=== PATIENT | female | born 1980 | race African-American/Black ===

== ENCOUNTER 2017-01-13 22:04 | Emergency (ER) | payer SELFPAY ==
[~2017-01-13] VITALS: Ht 182.9 cm; Wt 108.9 kg
[2017-01-13 22:22] VITALS: BP 144/88
[2017-01-13 22:27] LABS: BILIRUBIN,URINE NEGATIVE (NEG); GLUCOSE,URINE NEGATIVE (NEG); NITRITE,URINE NEGATIVE (NEG); PROTEIN,URINE NEGATIVE (NEG-TRACE)
--- NOTE | 2017-01-13 22:27 | PHYS DOC ---
Adult General Chief Complaint Chief Complaint: VAGINAL PROBLEM HPI HPI Patient is a 36 year old female presents to the emergency department with complaints of lower abdominal pain. She states she's had burning with urination for 3 days. She states that 3 days prior to the onset of her burning with urination she had sexual intercourse and she is concerned she may have an STD. She denies vaginal discharge. She states she does have a "not normal odor". Review of Systems Review of Systems Constitutional: Denies fever or chills [] Eyes: Denies change in visual acuity, redness, or eye pain [] HENT: Denies nasal congestion or sore throat [] Respiratory: Denies cough or shortness of breath [] Cardiovascular: No additional information not addressed in HPI [] GI: Denies nausea, vomiting, bloody stools or diarrhea; complaining of low abdominal pain : Dysuria and malodorous vagina Musculoskeletal: Denies back pain or joint pain [] Integument: Denies rash or skin lesions [] Neurologic: Denies headache, focal weakness or sensory changes [] Endocrine: Denies polyuria or polydipsia [] Allergies Allergies Allergies Coded Allergies Type Severity Reaction Last Updated Verified No Known Drug Allergies 01/13/17 No Physical Exam Physical Exam Constitutional: Well developed, well nourished, no acute distress, non-toxic appearance. [] Neck: Normal range of motion, no tenderness, supple, no stridor. [] Cardiovascular:Heart rate regular rhythm, no murmur [] Lungs & Thorax: Bilateral breath sounds clear to auscultation [] Abdomen: Bowel sounds normal, soft, no tenderness, no masses, no pulsatile masses. : External genitalia normal, vaginal vault clear without discharge. Patient has had a previous hysterectomy no cervix visualized, the cuff is intact. Bimanual exam unremarkable. [] Skin: Warm, dry, no erythema, no rash. [] Back: No tenderness, no CVA tenderness. [] Current Patient Data Vital Signs Vital Signs Date Time Temp Pulse Resp B/P (MAP) Pulse Ox O2 Delivery O2 Flow Rate FiO2 01/13/17 22:22 99.1 65 18 98 Room Air 99.1 Lab Values Laboratory Tests Test 01/13/17 22:10 Urine Collection Type Void Urine Color Yellow Urine Clarity Clear Urine pH 7.0 Urine Specific [place] 1.025 Urine Protein Negative mg/dL (NEG-TRACE) Urine Glucose (UA) Negative mg/dL (NEG) Urine Ketones (Stick) Negative mg/dL (NEG) Urine Blood Moderate (NEG) Urine Nitrite Negative (NEG) Urine Bilirubin Negative (NEG) Urine Urobilinogen Dipstick 2.0 mg/dL (0.2 mg/dL) Urine Leukocyte Esterase Moderate (NEG) Urine RBC 11-20 /HPF (0-2) Urine WBC 11-20 /HPF (0-4) Urine Squamous Epithelial Cells Few /LPF Urine Bacteria Few /HPF (0-FEW) Urine Mucus Mod /LPF EKG EKG [] Radiology/Procedures Radiology/Procedures [] Course & Med Decision Making Course & Med Decision Making Pertinent Labs and Imaging studies reviewed. (See chart for details) [] Urine positive for leukocytes, microscopic WBCs 11-20 Dragon Disclaimer Dragon Disclaimer This electronic medical record was generated, in whole or in part, using a voice recognition dictation system. Departure Departure Impression: Primary Impression: Urinary tract infection Disposition: HOME, SELF-CARE Condition: STABLE Referrals: NON,STAFF (PCP) Patient Instructions: Urinary Tract Infection Scripts Phenazopyridine Hcl (PYRIDIUM) 200 Mg Tablet 200 MG PO TID, #6 TAB Prov: DANA SIERRA APRN 01/13/17 Sulfamethoxazole/Trimethoprim (BACTRIM DS TABLET) 1 Each Tablet 1 TAB PO BID, #20 TAB Prov: DANA SIERRA APRN 01/13/17 Problem Qualifiers Primary Impression: Urinary tract infection Urinary tract infection type: acute cystitis Hematuria presence: with hematuria Qualified Codes: N30.01 - Acute cystitis with hematuria DANA SIERRA APRN Jan 13, 2017 22:27
[2017-01-13 22:34] LABS: BACTERIA,URINE FEW /HPF (0-FEW); SQUAMOUS EPITHELIAL CELL,UR FEW /LPF
[2017-01-13] MEDS ORDERED: PHEN-318 PO (22:42)
[2017-01-13] MEDS ORDERED: SULF1TAB24 PO (22:42)
== END 2017-01-13 22:45 | disposition home or self-care (01) ==
LOC: ER 22:04
DX: N30.01 Acute cystitis with hematuria (principal)
CPT/HCPCS: 81001; 87491; 87591; 99284

== ENCOUNTER 2017-03-21 23:36 | Emergency (ER) | payer SELFPAY ==
[~2017-03-21] VITALS: Ht 185.4 cm; Wt 104.3 kg
[~2017-03-21 23:36] MED LIST: PHEN-318 PO; SULF1TAB24 PO
[2017-03-22] MEDS ORDERED: ONDANSETRON PF 4 MG/2 ML VIAL. ONE (00:04)
[2017-03-22 00:24] LABS: BASO # 0.1 x10^3/uL (0.0-0.2); BASO % 1 % (0-3); EOS % 1 % (0-3); HEMATOCRIT 36.4 % (36.0-47.0); HEMOGLOBIN 11.9 g/dL (12.0-15.5); LYMPH # 3.9 x10^3/uL (1.0-4.8); LYMPH % 37 % (24-48); MEAN CORPUSCULAR HEMOGLOBIN 27 pg (25-35); MEAN CORPUSCULAR HGB CONC 33 g/dL (31-37); MEAN CORPUSCULAR VOLUME 83 fL (79-100); MONO % 12 % (0-9); NEUT % 50 % (31-73); PLATELET COUNT 232 x10^3/uL (140-400); RED BLOOD COUNT 4.38 x10^6/uL (3.50-5.40); RED CELL DISTRIBUTION WIDTH 14.3 % (11.5-14.5); WHITE BLOOD COUNT 10.7 x10^3/uL (4.0-11.0)
[2017-03-22 00:27] LABS: BILIRUBIN,URINE NEGATIVE (NEG); GLUCOSE,URINE NEGATIVE (NEG); NITRITE,URINE NEGATIVE (NEG); PH,URINE 6.5; PROTEIN,URINE NEGATIVE (NEG-TRACE)
[2017-03-22 00:36] LABS: CALCIUM 9.3 mg/dL (8.5-10.1); CREATININE 0.8 mg/dL (0.6-1.0); GFR 97.7; POTASSIUM 3.8 mmol/L (3.5-5.1)
[2017-03-22 00:38] LABS: BACTERIA,URINE MANY /HPF (0-FEW); RBC,URINE OCC /HPF (0-2); SQUAMOUS EPITHELIAL CELL,UR MANY /LPF; TRICHOMONAS,URINE PRESENT
[2017-03-22 00:42] LABS: ALBUMIN 3.4 g/dL (3.4-5.0); ALBUMIN/GLOBULIN RATIO 0.9 (1.0-1.7); TOTAL BILIRUBIN 0.1 mg/dL (0.2-1.0); TOTAL PROTEIN 7.4 g/dL (6.4-8.2)
[2017-03-22] MEDS ORDERED: KETOROLAC 15 MG/ML VIAL. IV ONE (01:00)
[2017-03-22] MEDS ORDERED: IV NORMAL SALINE 1000ML BAG 1,000 ML IV ONE (01:00)
[2017-03-22] MEDS ORDERED: ONDANSETRON PF 4 MG/2 ML VIAL. IV ONE (01:00)
[2017-03-22 01:50] VITALS: BP 106/59
[2017-03-22] MEDS ORDERED: HYOS0.1265 SL (02:13)
[2017-03-22] MEDS ORDERED: ONDA4TAB10 SL (02:13)
--- NOTE | 2017-03-22 02:13 | PHYS DOC ---
Past Medical History Past Medical History: Cancer Additional Past Medical Histor: UTERINE CANCER Past Surgical History: Hysterectomy Alcohol Use: None Drug Use: None Adult General Chief Complaint Chief Complaint: MULTIPLE COMPLAINTS HPI HPI Patient is a 36 year old [f__sex] who presents with [] Review of Systems Review of Systems Constitutional: Denies fever or chills [] Eyes: Denies change in visual acuity, redness, or eye pain [] HENT: Denies nasal congestion or sore throat [] Respiratory: Denies cough or shortness of breath [] Cardiovascular: No additional information not addressed in HPI [] GI: Denies abdominal pain, nausea, vomiting, bloody stools or diarrhea [] : Denies dysuria or hematuria [] Musculoskeletal: Denies back pain or joint pain [] Integument: Denies rash or skin lesions [] Neurologic: Denies headache, focal weakness or sensory changes [] Endocrine: Denies polyuria or polydipsia [] Current Medications Current Medications Current Medications Medications (Trade) Dose Ordered Sig/Perico Start Time Stop Time Status Last Admin Dose Admin Ketorolac Tromethamine (Toradol) 15 mg 1X ONCE 03/22/17 01:00 03/22/17 01:01 DC 03/22/17 00:55 15 MG Ondansetron HCl (Zofran) 4 mg 1X ONCE 03/22/17 01:00 03/22/17 01:01 DC 03/22/17 00:30 4 MG Sodium Chloride 1,000 ml @ 1,000 mls/hr 1X ONCE 03/22/17 01:00 03/22/17 01:59 DC 03/22/17 00:55 1,000 MLS/HR Allergies Allergies Allergies Coded Allergies Type Severity Reaction Last Updated Verified No Known Drug Allergies 01/13/17 No Physical Exam Physical Exam Constitutional: Well developed, well nourished, no acute distress, non-toxic appearance. [] HENT: Normocephalic, atraumatic, bilateral external ears normal, oropharynx moist, no oral exudates, nose normal. [] Eyes: PERRLA, EOMI, conjunctiva normal, no discharge. [] Neck: Normal range of motion, no tenderness, supple, no stridor. [] Cardiovascular:Heart rate regular rhythm, no murmur [] Lungs & Thorax: Bilateral breath sounds clear to auscultation [] Abdomen: Bowel sounds normal, soft, no tenderness, no masses, no pulsatile masses. [] Skin: Warm, dry, no erythema, no rash. [] Back: No tenderness, no CVA tenderness. [] Extremities: No tenderness, no cyanosis, no clubbing, ROM intact, no edema. [] Neurologic: Alert and oriented X 3, normal motor function, normal sensory function, no focal deficits noted. [] Psychologic: Affect normal, judgement normal, mood normal. [] Current Patient Data Vital Signs Vital Signs Date Time Temp Pulse Resp B/P (MAP) Pulse Ox O2 Delivery O2 Flow Rate FiO2 03/22/17 00:02 98.3 71 16 116/59 (78) 99 Room Air 98.3 Lab Values Laboratory Tests Test 03/22/17 00:01 White Blood Count 10.7 x10^3/uL (4.0-11.0) Red Blood Count 4.38 x10^6/uL (3.50-5.40) Hemoglobin 11.9 g/dL (12.0-15.5) L Hematocrit 36.4 % (36.0-47.0) Mean Corpuscular Volume 83 fL (79-100) Mean Corpuscular Hemoglobin 27 pg (25-35) Mean Corpuscular Hemoglobin Concent 33 g/dL (31-37) Red Cell Distribution Width 14.3 % (11.5-14.5) Platelet Count 232 x10^3/uL (140-400) Neutrophils (%) (Auto) 50 % (31-73) Lymphocytes (%) (Auto) 37 % (24-48) Monocytes (%) (Auto) 12 % (0-9) H Eosinophils (%) (Auto) 1 % (0-3) Basophils (%) (Auto) 1 % (0-3) Neutrophils # (Auto) 5.3 x10^3uL (1.8-7.7) Lymphocytes # (Auto) 3.9 x10^3/uL (1.0-4.8) Monocytes # (Auto) 1.3 x10^3/uL (0.0-1.1) H Eosinophils # (Auto) 0.1 x10^3/uL (0.0-0.7) Basophils # (Auto) 0.1 x10^3/uL (0.0-0.2) Urine Collection Type Unknown Urine Color Yellow Urine Clarity Cloudy Urine pH 6.5 Urine Specific [place] 1.025 Urine Protein Negative mg/dL (NEG-TRACE) Urine Glucose (UA) Negative mg/dL (NEG) Urine Ketones (Stick) Negative mg/dL (NEG) Urine Blood Large (NEG) Urine Nitrite Negative (NEG) Urine Bilirubin Negative (NEG) Urine Urobilinogen Dipstick 1.0 mg/dL (0.2 mg/dL) Urine Leukocyte Esterase Small (NEG) Urine RBC Occ /HPF (0-2) Urine WBC 11-20 /HPF (0-4) Urine Squamous Epithelial Cells Many /LPF Urine Bacteria Many /HPF (0-FEW) Urine Mucus Mod /LPF Urine Trichomonas Present Sodium Level 143 mmol/L (136-145) Potassium Level 3.8 mmol/L (3.5-5.1) Chloride Level 105 mmol/L (98-107) Carbon Dioxide Level 28 mmol/L (21-32) Anion Gap 10 (6-14) Blood Urea Nitrogen 14 mg/dL (7-20) Creatinine 0.8 mg/dL (0.6-1.0) Estimated GFR (Cockcroft-Gault) 97.7 BUN/Creatinine Ratio 18 (6-20) Glucose Level 101 mg/dL (70-99) H Calcium Level 9.3 mg/dL (8.5-10.1) Total Bilirubin 0.1 mg/dL (0.2-1.0) L Aspartate Amino Transferase (AST) 22 U/L (15-37) Alanine Aminotransferase (ALT) 21 U/L (14-59) Alkaline Phosphatase 50 U/L (46-116) Troponin I Quantitative < 0.017 ng/mL (0.000-0.055) Total Protein 7.4 g/dL (6.4-8.2) Albumin 3.4 g/dL (3.4-5.0) Albumin/Globulin Ratio 0.9 (1.0-1.7) L Lipase 239 U/L (73-393) Laboratory Tests 03/22/17 00:01 Laboratory Tests 03/22/17 00:01 EKG EKG [] Radiology/Procedures Radiology/Procedures [] Course & Med Decision Making Course & Med Decision Making Pertinent Labs and Imaging studies reviewed. (See chart for details) [] Dragon Disclaimer Dragon Disclaimer This electronic medical record was generated, in whole or in part, using a voice recognition dictation system. Departure Departure Impression: Primary Impression: Nausea & vomiting Additional Impression: Abdominal pain Disposition: HOME, SELF-CARE Condition: IMPROVED Referrals: NO PCP (PCP) Patient Instructions: Abdominal Pain (Nonspecific) Scripts Ondansetron (ZOFRAN ODT) 4 Mg Tab.rapdis 1 TAB SL Q6HRS Y for NAUSEA, #12 TAB Prov: FAREED VICENTE MD 03/22/17 Hyoscyamine Sulfate (LEVSIN-SL) 0.125 Mg Tab.subl 0.125 MG SL Q6-8HRS Y for abdominal cramps, #10 Prov: FAREED VICENTE MD 03/22/17 Problem Qualifiers FAREED VICENTE MD Mar 22, 2017 02:13
--- NOTE | 2017-03-22 06:28 | EKG ---
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
== END 2017-03-22 02:23 | disposition home or self-care (01) ==
LOC: ER 23:36
DX: R11.2 Nausea with vomiting, unspecified (principal); R10.9 Unspecified abdominal pain
CPT/HCPCS: 36415; 80053; 81001; 83690; 84484; 85025; 87086; 93005; 96361; 96374; 96375; 99285; J1885; J2405; J7030

== ENCOUNTER → 2017-06-29 | Outpatient (CLI) | payer OTHER ==
[2017-06-29 11:38] LABS: ADD MAN DIFF? NO
[2017-06-29 11:44] LABS: BASO # 0.1 x10^3/uL (0.0-0.2); BASO % 1 % (0-3); EOS # 0.1 x10^3/uL (0.0-0.7); EOS % 2 % (0-3); HEMATOCRIT 39.2 % (36.0-47.0); HEMOGLOBIN 12.5 g/dL (12.0-15.5); LYMPH # 2.3 x10^3/uL (1.0-4.8); LYMPH % 39 % (24-48); MEAN CORPUSCULAR HEMOGLOBIN 27 pg (25-35); MEAN CORPUSCULAR HGB CONC 32 g/dL (31-37); MEAN CORPUSCULAR VOLUME 84 fL (79-100); MONO # 0.7 x10^3/uL (0.0-1.1); MONO % 11 % (0-9); NEUT # 2.7 x10^3uL (1.8-7.7); NEUT % 47 % (31-73); PLATELET COUNT 276 x10^3/uL (140-400); RED BLOOD COUNT 4.66 x10^6/uL (3.50-5.40); RED CELL DISTRIBUTION WIDTH 14.9 % (11.5-14.5); WHITE BLOOD COUNT 5.9 x10^3/uL (4.0-11.0)
[2017-06-29 12:10] LABS: ALBUMIN 3.7 g/dL (3.4-5.0); ALBUMIN/GLOBULIN RATIO 0.8 (1.0-1.7); ALK PHOS 56 U/L (46-116); ALT (SGPT) 23 U/L (14-59); ANION GAP 6 (6-14); AST (SGOT) 22 U/L (15-37); BLOOD UREA NITROGEN 11 mg/dL (7-20); BUN/CREATININE RATIO 12 (6-20); CALCIUM 9.5 mg/dL (8.5-10.1); CARBON DIOXIDE 32 mmol/L (21-32); CHLORIDE 105 mmol/L (98-107); CREATININE 0.9 mg/dL (0.6-1.0); GFR 85.2; GLUCOSE 85 mg/dL (70-99); POTASSIUM 4.1 mmol/L (3.5-5.1); SODIUM 143 mmol/L (136-145); TOTAL BILIRUBIN 0.3 mg/dL (0.2-1.0); TOTAL PROTEIN 8.3 g/dL (6.4-8.2)
[2017-06-29 12:19] LABS: THYROID STIM HORMONE (TSH) 0.856 uIU/mL (0.358-3.74)
== END | disposition home or self-care (01) ==
LOC: LAB 11:26
DX: Z01.419 Encounter for gynecological examination (general) (routine) without abnormal findings (principal); R79.89 Other specified abnormal findings of blood chemistry; Z87.440 Personal history of urinary (tract) infections; Z79.899 Other long term (current) drug therapy
CPT/HCPCS: 36415; 80053; 84443; 85025

== ENCOUNTER → 2017-07-07 | Outpatient (CLI) | payer OTHER | END | disposition home or self-care (01) | LOC: MAMMO 08:49 | DX: R92.0 Mammographic microcalcification found on diagnostic imaging of breast (principal); N64.4 Mastodynia | CPT/HCPCS: 76641; 77066 ==

== ENCOUNTER 2017-07-17 00:06 | Emergency (ER) | payer OTHER | END 2017-07-17 00:54 | disposition home or self-care (01) | LOC: ER 00:06 | DX: S30.0XXA Contusion of lower back and pelvis, initial encounter (principal); S50.01XA Contusion of right elbow, initial encounter; W01.0XXA Fall on same level from slipping, tripping and stumbling without subsequent striking against object, initial encounter; Y93.89 Activity, other specified; Y99.8 Other external cause status; Y92.89 Other specified places as the place of occurrence of the external cause | CPT/HCPCS: 72100; 73080; 99284 ==

== ENCOUNTER 2018-02-04 15:51 | Emergency (ER) | payer OTHER ==
[~2018-02-04] VITALS: Ht 185.4 cm; Wt 101.2 kg
[~2018-02-04 15:51] MED LIST changes: +CYCL10TA2 PO; +HYOS0.1265 SL; +NAPR-514 PO; +ONDA4TAB10 SL
[2018-02-04 16:05] VITALS: BP 137/61
--- NOTE | 2018-02-04 16:58 | RAD ---
CT head without intravenous contrast History: Fall, right periorbital swelling. Comparison: None. Technique: Axial images are obtained of the head from the skull base through the vertex without IV contrast. Exposure: One or more of the following individualized dose reduction techniques were utilized for this examination: 1. Automated exposure control 2. Adjustment of the mA and/or kV according to patient size 3. Use of iterative reconstruction technique Findings: The ventricles are appropriate in size, shape, and location for the patient's age. No obvious intracranial mass, mass-effect, midline shift, hemorrhage or obvious acute infarction is identified. Basilar cisterns are patent. Bone windows demonstrate no acute calvarial abnormality. Impression: 1. No acute intracranial process. Electronically signed by: Flex Huerta MD (02/04/2018 4:54 PM) [facility]
--- NOTE | 2018-02-04 17:03 | RAD ---
CT orbits without contrast History: Fall, right periorbital swelling. Technique: CT of the orbits was performed without intravenous contrast. Axial, sagittal, and coronal reconstructions were obtained. Exposure: One or more of the following individualized dose reduction techniques were utilized for this examination: 1. Automated exposure control 2. Adjustment of the mA and/or kV according to patient size 3. Use of iterative reconstruction technique Findings: No acute fracture is identified. Bilateral orbits and orbital contents appear intact. The visualized paranasal sinuses are clear with no significant mucosal thickening. Mild right periorbital soft tissue swelling is seen. Impression: 1. No acute facial fracture. Electronically signed by: Flex Huerta MD (02/04/2018 4:59 PM) [facility]
--- NOTE | 2018-02-04 17:14 | PHYS DOC ---
Past Medical History Past Medical History: Cancer Additional Past Medical Histor: UTERINE CANCER Past Surgical History: Hysterectomy Alcohol Use: None Drug Use: None Adult General Chief Complaint Chief Complaint: EYE PROBLEMS HPI HPI Patient is a 37 year old [f__sex] who presents with [] Review of Systems Review of Systems Constitutional: Denies fever or chills [] Eyes: Denies change in visual acuity, redness, or eye pain [] HENT: Denies nasal congestion or sore throat [] Respiratory: Denies cough or shortness of breath [] Cardiovascular: No additional information not addressed in HPI [] GI: Denies abdominal pain, nausea, vomiting, bloody stools or diarrhea [] : Denies dysuria or hematuria [] Musculoskeletal: Denies back pain or joint pain [] Integument: Denies rash or skin lesions [] Neurologic: Denies headache, focal weakness or sensory changes [] Endocrine: Denies polyuria or polydipsia [] All other systems were reviewed and found to be within normal limits, except as documented in this note. Allergies Allergies Allergies Coded Allergies Type Severity Reaction Last Updated Verified No Known Drug Allergies 01/13/17 No Physical Exam Physical Exam Constitutional: Well developed, well nourished, no acute distress, non-toxic appearance. [] HENT: Normocephalic, atraumatic, bilateral external ears normal, oropharynx moist, no oral exudates, nose normal. [] Eyes: PERRLA, EOMI, conjunctiva normal, no discharge. [] Neck: Normal range of motion, no tenderness, supple, no stridor. [] Cardiovascular:Heart rate regular rhythm, no murmur [] Lungs & Thorax: Bilateral breath sounds clear to auscultation [] Abdomen: Bowel sounds normal, soft, no tenderness, no masses, no pulsatile masses. [] Skin: Warm, dry, no erythema, no rash. [] Back: No tenderness, no CVA tenderness. [] Extremities: No tenderness, no cyanosis, no clubbing, ROM intact, no edema. [] Neurologic: Alert and oriented X 3, normal motor function, normal sensory function, no focal deficits noted. [] Psychologic: Affect normal, judgement normal, mood normal. [] Current Patient Data Vital Signs Vital Signs Date Time Temp Pulse Resp B/P (MAP) Pulse Ox O2 Delivery O2 Flow Rate FiO2 02/04/18 16:05 98.7 74 18 137/61 (86) 97 Room Air 98.7 EKG EKG [] Radiology/Procedures Radiology/Procedures [] Course & Med Decision Making Course & Med Decision Making Pertinent Labs and Imaging studies reviewed. (See chart for details) [] Dragon Disclaimer Dragon Disclaimer This electronic medical record was generated, in whole or in part, using a voice recognition dictation system. Departure Departure Impression: Primary Impression: Fall from standing Additional Impressions: Swelling of right lower eyelid Head injury, acute, without loss of consciousness Disposition: 01 HOME, SELF-CARE Condition: STABLE Referrals: NO PCP (PCP) Patient Instructions: Fall Prevention and Home Safety, [id number], Head Injury, Adult, [id number] Additional Instructions: Apply a cool compress or ice pack to swollen area. May take tylenol or ibuprofen as needed for pain. Follow up with your PCP in 1-2 days. Return to the ER if your symptoms worsen. Problem Qualifiers Primary Impression: Fall from standing Encounter type: initial encounter Qualified Codes: W19.XXXA - Unspecified fall, initial encounter Additional Impressions: Head injury, acute, without loss of consciousness Encounter type: initial encounter Qualified Codes: S09.90XA - Unspecified injury of head, initial encounter MAURI FOSS BLANKET INSPECTOR Feb 04, 2018 17:14
== END 2018-02-04 17:25 | disposition home or self-care (01) ==
LOC: ER 15:51
DX: S09.90XA Unspecified injury of head, initial encounter (principal); H02.89 Other specified disorders of eyelid; W18.09XA Striking against other object with subsequent fall, initial encounter; Y93.89 Activity, other specified; Y99.0 Civilian activity done for income or pay; Y92.69 Other specified industrial and construction area as the place of occurrence of the external cause
CPT/HCPCS: 70450; 70480; 99284-25

== ENCOUNTER 2018-04-27 18:09 | Emergency (ER) | payer OTHER ==
[~2018-04-27] VITALS: Ht 185.4 cm; Wt 99.8 kg
[2018-04-27 18:25] VITALS: BP 121/59
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
[2018-04-27] MEDS: NAPROXEN 500 MG TABLET PO STA (18:58)
[2018-04-27] MEDS: CYCLOBENZAPRINE 10 MG TABLET. PO ONE (18:59)
[2018-04-27] MEDS: HYDROcodone/APAP 5/325MG 1 TAB TABLET PO ONE (19:00)
[2018-04-27] MEDS ORDERED: METH4TAB2 PO (19:13)
[2018-04-27] MEDS ORDERED: DICL50TA4 PO (19:13)
[2018-04-27] MEDS ORDERED: CYCL10TA2 PO (19:13)
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
== END 2018-04-27 19:20 | disposition home or self-care (01) ==
LOC: ER 18:09
DX: M54.5 Low back pain (principal); Z90.710 Acquired absence of both cervix and uterus; V43.52XA Car driver injured in collision with other type car in traffic accident, initial encounter; Y93.89 Activity, other specified; Y92.410 Unspecified street and highway as the place of occurrence of the external cause; Y99.8 Other external cause status
CPT/HCPCS: 72100; 99284

== ENCOUNTER → 2019-11-08 | Outpatient (CLI) | payer OTHER ==
[~2019-11-08] MED LIST changes: +DICL50TA4 PO; +METH4TAB2 PO
--- NOTE | 2019-11-08 10:27 | RAD ---
MR#: [id number] Date of Study: 11/08/2019 Ordering Physician: PACNHO NEFF, Referring Physician: PANCHO NEFF, Tech: Tawny Acevedo, ROEL, RVT, RTR APPROVED REPORT Patient Location: OUT-PATIENT Indications Claudication:Bilaterally VELOCITY AND DOPPLER WAVEFORM ANALYSIS RIGHT cm/secWaveformSeverity LEFT cm/secWaveform Severity pCFA 201.0pCFA 227.0 Prof Fem Art. 101.6Prof Fem Art. 127.7 Fem Art Prox. 116.5Fem Art Prox. 151.8 Fem Art Mid. 125.6Fem Art Mid. 130.5 Fem Art Dist. 103.3Fem Art Dist. 112.0 Pop Art(AK) 47.5Pop Art(AK) 56.1 ROLL FORGER Prox. 30.2PTA Prox. 38.0 ROLL FORGER Dist. 55.4PTA Dist. 51.6 Per Art Prox. 55.4Per Art Prox. 55.5 YOSELIN Prox. 64.9ATA Prox. 55.4 DPA 49DPA 60 Findings Grayscale images of the right lower extremity arterial vessels demonstrate mild diffuse irregularitie s. Velocities are mildly elevated at the common femoral artery suggestive of mild stenosis more prox imally. The remainder of the arterial vessels from the common femoral artery to the popliteal artery demonstrate mostly triphasic and biphasic waveforms. Velocities are moderately diminished in the po sterior tibial artery suggestive of moderate disease. No focal high-grade obstruction is noted with three-vessel runoff. On the left side similarly there are mostly biphasic and triphasic waveforms. The velocities are sli ghtly diminished again in the posterior tibial artery suggestive of moderate disease but otherwise th ere is three-vessel runoff below the knee. Mildly elevated velocities at the level of the common fem oral artery again suggest more mild to moderate stenosis proximally. Critical Notification Critical Value: No <Conclusion> 1. No significant high-grade focal stenosis identified in the bilateral lower extremity arterial ves sels. There is three-vessel runoff below the knee Signed by : Fransico Andrews, Electronically Approved : 11/08/2019 10:27:14
--- NOTE | 2019-11-08 10:28 | RAD ---
MR#: [id number] Date of Study: 11/08/2019 Ordering Physician: PANCHO NEFF, Referring Physician: PANCHO NEFF, Tech: Tawny Acevedo RDMS, RVT, RTR APPROVED REPORT Bilateral Lower Extremity Venous Study for DVT, Venous Competence Patient Location: OUT-PATIENT Indications Lower Extremity Pain: Bilateral Lower Extremity Edema: Bilateral Findings The bilateral lower extremity deep veins were evaluated for thrombus with color Doppler, spectral and grayscale images. On the right the grayscale images of the common femoral, superficial femoral and popliteal veins do n ot demonstrate any evidence of thrombus and these veins appear to be compressible. The below-knee vei ns were not well visualized but grossly appear to be compressible. Spectral imaging and color Doppler do not reveal any evidence of obstruction to flow with normal respirophasic variation above the knee . Below the knee there is spontaneous flow noted. On the left, the grayscale images of the common femoral, superficial femoral and popliteal veins do n ot demonstrate any evidence of thrombus and these veins appear to be compressible. The below-knee vei ns again were not well visualized but grossly appear to be compressible. Spectral imaging and color D oppler do not reveal any evidence of obstruction to flow with normal respirophasic variation above th e knee. The below-knee veins demonstrate spontaneous flow. Critical Notification Critical Value: No <Conclusion> 1. No evidence of DVT in the bilateral lower extremities. The mid to distal superficial femoral vei ns were not well visualized but grossly no evidence of DVT noted. Signed by : Fransico Andrews, Electronically Approved : 11/08/2019 10:28:35
--- NOTE | 2019-11-08 10:31 | RAD ---
MR#: [id number] Date of Study: 11/08/2019 Ordering Physician: PANCHO NEFF, Referring Physician: PANCHO NEFF, Tech: Tawny Acevedo RDMS, CRYSTAL, RTR APPROVED REPORT Patient Location : OUT-PATIENT Indications Lower Extremity Pain : Bilateral Lower Extremity Edema : Bilateral Findings Grayscale images of the bilateral saphenofemoral junctions are grossly unremarkable. Spectral waveforms and color Doppler evaluation of the greater saphenous veins reveals no evidence of reflux. The right great saphenous vein measures 3.8 mm in the left great saphenous vein measures 4. 2 mm. The bilateral lesser saphenous veins and also did not show any evidence of reflux. Critical Notification Critical Value: No <Conclusion> 1. No evidence of reflux in the bilateral greater and lesser saphenous veins Signed by : Fransico Andrews, Electronically Approved : 11/08/2019 10:30:27
--- NOTE | 2019-11-08 10:32 | RAD ---
MR#: [id number] Date of Study: 11/08/2019 Ordering Physician: PANCHO NEFF, Referring Physician: PANCHO NEFF, Tech: Tawny Acevedo RDMS, LYNNET, RTR APPROVED REPORT Patient Location: OUT-PATIENT Exam Type: Ankle to Brachial Index Indications Claudication:Bilaterally Pressures/Indices RightABI LeftABI Brachial [id number] [id number] Ankle(PT) 140mmHgAnkle(PT) 140mmHg Ankle(DP) 138mmHgAnkle(DP) 136mmHg Findings Normal BASSAM values as noted above. Critical Notification Critical Value: No <Conclusion> 1. Normal BASSAM. Signed by : Fransico Andrews, Electronically Approved : 11/08/2019 10:31:34
== END | disposition home or self-care (01) ==
LOC: US 07:37
PROVIDERS: ATTEND Internal Medicine Cardiovascular Disease
DX: I73.9 Peripheral vascular disease, unspecified (principal)
CPT/HCPCS: 93922; 93925; 93970

== ENCOUNTER 2021-06-06 12:25 | Emergency (ER) | payer OTHER ==
[~2021-06-06] VITALS: Ht 167.6 cm; Wt 80.0 kg
[~2021-06-06 12:25] MED LIST changes: +CYCL10TA19 PO; -CYCL10TA2 PO
--- NOTE | 2021-06-06 12:32 | PHYS DOC ---
Past Medical History Past Medical History: Cancer Additional Past Medical Histor: UTERINE CANCER Past Surgical History: Hysterectomy Smoking Status: Never Smoker Alcohol Use: None Drug Use: None General Adult EDM: Chief Complaint: ANXIETY/PANIC ATTACK HPI: HPI: Patient is a 40-year-old female presenting via EMS for panic attack. States she was at work and suffered a panic attack which was crippling and caused her to sit down. There is no fall or trauma, witnesses observed patient looked confused and lowered herself into a seated position. EMS was subsequently contacted and on arrival, patient was found to be tachypneic otherwise hemodynamically stable with an unremarkable fingerstick blood glucose. Nonetheless, patient was still tachypneic and anxious and so, decision was made to transfer to our facility for evaluation. On arrival, patient states she feels much better. States she feels fatigued otherwise is asymptomatic. She admits having history of anxiety, depression and PTSD for which she is well covered in outpatient setting with a psychiatrist. She has been taking all medications that include Ativan and an SSRI at home but admits she did not take her daily Ativan prior to work. Denies any significant life stressors or major changes in overall health. She denies any homicidal or suicidal ideation Review of Systems: Review of Systems: Fourteen body systems of review of systems have been reviewed. See HPI for pertinent positives and negative responses, other lai all other systems are negative, non-pertinent or non-contributory Heart Score: C/O Chest Pain: No HEART Score for Chest Pain: HEART Score for Chest Pain Response (Comments) Value History Slighlty/Non-Suspicious 0 ECG Normal 0 Age < 45 0 Risk Factors No Risk Factors 0 Total 0 Risk Factors: Risk Factors: DM, Current or recent (<one month) smoker, HTN, HLP, family history of CAD, obesity. Risk Scores: Score 0 - 3: 2.5% MACE over next 6 weeks - Discharge Home Score 4 - 6: 20.3% MACE over next 6 weeks - Admit for Clinical Observation Score 7 - 10: 72.7% MACE over next 6 weeks - Early Invasive Strategies Allergies: Allergies: Allergies Coded Allergies Type Severity Reaction Last Updated Verified No Known Drug Allergies 01/13/17 No Physical Exam: PE: Constitutional: Well developed, well nourished, no acute distress, non-toxic appearance. HENT: Normocephalic, atraumatic, bilateral external ears normal, oropharynx moist, no oral exudates, nose normal. Eyes: PERRLA, EOMI, conjunctiva normal, no discharge. Neck: Normal range of motion, no tenderness, supple, no stridor. Cardiovascular: Heart rate regular, sinus rhythm, no murmurs rubs or gallops Lungs & Thorax: Bilateral breath sounds clear to auscultation Abdomen: Bowel sounds normal, soft, no tenderness, no masses, no pulsatile masses. Nonsurgical abdomen, no peritoneal signs Skin: Warm, dry, no erythema, no rash. Back: No tenderness, no CVA tenderness. Extremities: No tenderness, no cyanosis, no clubbing, ROM intact, no edema. Neurologic: Alert and oriented X 3, grossly normal motor & sensory function, no focal deficits noted. Psychologic: Affect normal, judgement normal, mood normal. EKG: EKG: EKG ordered and interpreted by myself at 1240 hrs. sinus rhythm at 64 bpm, unremarkable intervals, left axis deviation, no acute ischemic findings, no STEMI Radiology/Procedures: Radiology/Procedures: [] Course & Med Decision Making: Course & Med Decision Making Pertinent Labs and Imaging studies reviewed. (See chart for details) [] Dragon Disclaimer: Dragon Disclaimer: This electronic medical record was generated, in whole or in part, using a voice recognition dictation system. Departure Departure Impression: Primary Impression: Panic attack Additional Impression: PTSD (post-traumatic stress disorder) Disposition: 01 HOME / SELF CARE / HOMELESS Condition: STABLE Referrals: CLARE BOWMAN MD (PCP) Additional Instructions: You were seen in the ED for evaluation of anxiety. Anxiety is a serious medical condition with unfortunate effects on daily living. You should utilize your previously established behavior Health resources for further management of your symptoms. If any concerning signs or symptoms present prior to outpatient follow-up please do not hesitate to come back for repeat evaluation. It was a pleasure to take care of you and I wish you the best going forward ANDRZEJ FREGOSO DO Jun 06, 2021 12:32
[2021-06-06 12:51] VITALS: BP 135/78
--- NOTE | 2021-06-07 04:37 | EKG ---
[facility] [address] [place] [address] Test Date: 2021-06-06 Test Time: 12:33:40 Pat Name: CHAPINCITO ARROYO Department: Room: Gender: F [employer] Developer: : 1980 Requested By: ANDRZEJ FREGOSO Order Number: [id number] Reading MD: Measurements Intervals [place] Rate: 64 P: 28 OK: 152 QRS: -28 QRSD: 92 T: -3 QT: 398 QTc: 415 Interpretive Statements SINUS RHYTHM LEFTWARD AXIS QRS(T) CONTOUR ABNORMALITY CONSIDER ANTEROSEPTAL MYOCARDIAL DAMAGE POSSIBLY ABNORMAL ECG RI6.02 No previous ECG available for comparison
== END 2021-06-06 16:01 | disposition home or self-care (01) ==
LOC: ER 12:25
DX: F41.0 Panic disorder [episodic paroxysmal anxiety] (principal); F43.10 Post-traumatic stress disorder, unspecified
CPT/HCPCS: 93005; 99283